=== PATIENT | female | born 1980 | race Two or more races ===

== ENCOUNTER 2022-10-31 10:08 | Emergency (ER) | payer OTHER ==
[~2022-10-31] VITALS: Ht 167.6 cm; Wt 68.0 kg
[2022-10-31] MEDS ORDERED: CIPRO500 MG PO (15:08)
== END 2022-10-31 15:33 | disposition home or self-care (01) ==
LOC: ER 10:08
DX: R31.9 Hematuria, unspecified (principal); Z88.2 Allergy status to sulfonamides

== ENCOUNTER 2023-07-22 13:19 | Emergency (ER) | payer OTHER ==
[~2023-07-22] VITALS: Ht 165.1 cm; Wt 61.2 kg
[~2023-07-22 13:19] MED LIST: CIPRO500 MG PO
== END 2023-07-22 17:55 | disposition home or self-care (01) ==
LOC: ER 13:19
DX: M43.6 Torticollis (principal); Z88.2 Allergy status to sulfonamides
CPT/HCPCS: 96372; 99284; J1885; J2360

== ENCOUNTER → 2024-01-27 | Emergency (ER) | payer OTHER ==
[~2024-01-27] VITALS: Ht 162.6 cm; Wt 59.4 kg
[~2024-01-27] MED LIST changes: +KETOROLAC TROMETHAMINE 60 MG VIAL IM ONE; +MEDROLPACK PO
== END | disposition home or self-care (01) ==
LOC: ER 13:10
DX: M77.8 Other enthesopathies, not elsewhere classified (principal); M25.511 Pain in right shoulder; Z88.2 Allergy status to sulfonamides

== ENCOUNTER 2024-04-26 06:27 | Emergency (ER) | payer OTHER ==
[~2024-04-26] VITALS: Ht 162.6 cm; Wt 60.3 kg
[~2024-04-26 06:27] MED LIST changes: -KETOROLAC TROMETHAMINE 60 MG VIAL IM ONE
[2024-04-26] MEDS ORDERED: ENDOMETRIN100 MG VAG (06:32)
[2024-04-26] MEDS ORDERED: PSEUDOEPHEDRINE HCL 60 MG TABLET PO ONE (08:30)
[2024-04-26] MEDS ORDERED: METHYLPREDNISOLONE SOD SUCC 40 MG VIAL IM ONE (08:30)
[2024-04-26] MEDS ORDERED: LEVALBUTEROL HCL 0.63 MG/3 ML SOLUTION IH ONE (08:30)
[2024-04-26] MEDS ORDERED: 0.9 % SODIUM CHLORIDE 500 ML IV ONE (08:30)
[2024-04-26] MEDS ORDERED: CEFTRIAXONE SODIUM 2,000 MG VIAL IM ONE (08:30)
[2024-04-26] MEDS ORDERED: LORATADINE/PSEUDOEPHEDRINE 1 TAB TAB.SR.12H PO STA (09:00)
[2024-04-26] MEDS ORDERED: LORATADINE 10 MG/10 ML ML PO ONE (09:00)
[2024-04-26 10:03] LABS: HEMATOCRIT 35.7 % (36.0-45.00); HEMOGLOBIN 11.7 g/dL (12.0-15.00); MEAN CORPUSCULAR HEMOGLOBIN 29.3 pg (27.00-32.0); MEAN CORPUSCULAR HGB CONC 32.9 g/dl (32.0-36.0); PLATELET COUNT 199 K/uL (150-450); RED BLOOD COUNT 4.01 M/uL (4.00-6.00); RED CELL DISTRIBUTION WIDTH 13.9 % (11.5-14.5)
== END 2024-04-26 11:34 | disposition home or self-care (01) ==
LOC: ER 06:28
PROVIDERS: General Practice
DX: J00 Acute nasopharyngitis [common cold] (principal); Z20.822 Contact with and (suspected) exposure to COVID-19; Z88.2 Allergy status to sulfonamides

== ENCOUNTER 2024-09-22 14:02 | Outpatient (CLI) | payer OTHER ==
[~2024-09-22 14:02] MED LIST changes: +ENDOMETRIN100 MG VAG
== END 2024-09-22 14:08 | disposition home or self-care (01) ==
LOC: SONOGRAMA 14:02
DX: O46.91 Antepartum hemorrhage, unspecified, first trimester (principal); Z34.01 Encounter for supervision of normal first pregnancy, first trimester; Z3A.01 Less than 8 weeks gestation of pregnancy

== ENCOUNTER 2025-06-27 14:52 | Emergency (ER) | payer OTHER ==
[~2025-06-27] VITALS: Ht 165.1 cm; Wt 59.9 kg
[2025-06-27 17:01] LABS: BASO % 0.3 % (0.1-1.2); EOS # 0.07 (0.04-0.54); EOS % 0.9 % (0.7-7.0); LYMPH # 1.16 (1.18-3.74); LYMPH % 15.3 % (19.3-53.1); MEAN PLATELET VOLUME 12.00 fl (9.4-12.4); MONO # 0.61 (0.24-0.82); MONO % 8.1 % (4.7-12.5); NEUT # 5.68 (1.56-6.13); NEUT % 75.0 % (34.0-71.1); RED CELL DISTRIBUTION WIDTH 12.9 % (11.6-14.4)
[2025-06-27 17:39] LABS: COVID-19 AG NEGATIVE (NEGATIVE)
[2025-06-27] MEDS ORDERED: AZITHROMYCIN500 MG PO (19:56)
[2025-06-27] MEDS ORDERED: ACETAMINOPHEN500 M1 PO (19:56)
[2025-06-27] MEDS ORDERED: GILTUSS COUGH-118 M1 PO (19:56)
== END 2025-06-27 20:14 | disposition home or self-care (01) ==
LOC: ER 15:04
PROVIDERS: Preventive Medicine Public Health & General Preventive Medicine
DX: J06.9 Acute upper respiratory infection, unspecified (principal); J00 Acute nasopharyngitis [common cold]; Z20.822 Contact with and (suspected) exposure to COVID-19; Z88.2 Allergy status to sulfonamides